=== PATIENT | female | born 1950 | race Hispanic/Latino ===

== ENCOUNTER → 2019-07-07 | Outpatient (CLI) | payer MEDICARE ==
[~2019-07-07] MED LIST: ALCA3DRO OU; AMLO5TAB5 PO; DICLOFENAC TP; DOCU100C33 PO; FURO40TA7 PO; GLIP5TAB11 PO; Isosorbide Mononitrate PO; LABE300T2 PO; LORA10TA7 PO; LOSA100T58 PO; OMEP-50 PO; PRAV40TA3 PO; SERT50TA PO; TRAM50TA4 PO; WARF1TAB46 PO
== END | disposition home or self-care (01) ==
LOC: SHCH 09:45
PROVIDERS: ATTEND Internal Medicine Cardiovascular Disease
DX: I11.9 Hypertensive heart disease without heart failure (principal); I07.1 Rheumatic tricuspid insufficiency
CPT/HCPCS: 93306

== ENCOUNTER 2023-07-26 08:57 | Inpatient (IN) | payer MEDICARE ==
[~2023-07-26] VITALS: Ht 149.9 cm; Wt 92.9 kg
[~2023-07-26 08:57] MED LIST changes: +ACET-2743 PO; -ALCA3DRO OU; +AMLO-258 PO; -AMLO5TAB5 PO; +ATOR40TA69 PO; -DICLOFENAC TP; -FURO40TA7 PO; +GLIM1TAB18 PO; -GLIP5TAB11 PO; +ISOS60TA77 PO; -Isosorbide Mononitrate PO; +LABE100T7 PO; -LABE300T2 PO; -LOSA100T58 PO; +LOSA100T59 PO; -OMEP-50 PO; +OMEP20CA12 PO; -PRAV40TA3 PO; +SITA100T12 PO; +TORS20TA4 PO; -TRAM50TA4 PO; -WARF1TAB46 PO; +WARF2.5T85 PO
[2023-07-26 11:02] LABS: HEMATOCRIT 32.9 % (36-48); MEAN CORPUSCULAR HEMOGLOBIN 27.9 pg (27.0-33.0); MEAN CORPUSCULAR HGB CONC 31.9 g/dL (32.0-36.0); MEAN CORPUSCULAR VOLUME 87.3 fL (79-99); PLATELET COUNT (AUTO) 195 K/uL (130-400); RED BLOOD CELL COUNT(AUTO) 3.77 MIL/uL (4.00-5.50)
[2023-07-26 11:10] LABS: CREATININE 0.7 mg/dL (0.5-1.5); POTASSIUM 3.7 mmol/L (3.5-5.1)
[2023-07-26 11:15] LABS: INR 1.56 (0.85-1.15); PROTHROMBIN TIME 17.6 SEC (9.6-11.6)
[2023-07-26 11:16] LABS: PARTIAL THROMBOPLASTIN TIME 43.9 SEC (26.3-35.5)
[2023-07-26 11:30] VITALS: BP 114/61; PULSE 66; RESP 18
[2023-07-26 11:40] LABS: BAND NEUTROPHILS % (MANUAL) 5 % (0-2); EOSINOPHILS % (MANUAL) 2 % (1-6); LYMPHOCYTES % (MANUAL) 19 % (22-44); MAN.DIFF COMMENT-IMPRESSION MANUAL DIFFERENTIAL; MONOCYTES % (MANUAL) 3 % (2-9); PLATELET MORPHOLOGY COMMENT ADEQUATE; SEGMENTED NEUTROPHILS % 71 % (40-70); TOTAL CELLS COUNTED 100; WBC MORPHOLOGY CONSISTENT W/DIFF
[2023-07-26 12:59] LABS: BASOPHILS # (AUTO) 0.04 K/uL (0.00-0.20); BASOPHILS % (AUTO) 0.6 % (0.0-5.0); EOSINOPHILS % (AUTO) 2.9 % (0.0-8.0); IMMATURE GRANULOCYTE ABSOLUTE 0.02 K/uL (0-1); LYMPHOCYTES # (AUTO) 1.2 K/uL (1.0-4.8); LYMPHOCYTES % (AUTO) 18.1 % (21.0-51.0); MONOCYTES # (AUTO) 0.6 K/uL (0.1-1.0); NEUTROPHILS # (AUTO) 4.7 K/uL (1.8-7.7); NEUTROPHILS % (AUTO) 69.1 % (40.0-77.0)
[2023-07-26] MEDS ORDERED: HEPARIN 5,000 UNIT VIAL SQ PRN (13:00)
[2023-07-26] MEDS: HEPARIN 25,000 UNITS/250ML D5W 250 ML IV SCH ×2 (13:15→19:48)
[2023-07-26] MEDS ORDERED: ACETAMINOPHEN 325 MG TAB PO PRN (16:00)
[2023-07-26] MEDS ORDERED: MAG/ALUM/SIMETH 30 ML UDCUP PO PRN (16:00)
[2023-07-26] MEDS ORDERED: ACETAMINOPHEN WITH CODEINE 1 TAB TAB PO PRN ×2 (16:00)
[2023-07-26] MEDS ORDERED: LACTATED RINGERS 1000ML 1,000 ML IV SCH (16:00)
[2023-07-26 16:15] VITALS: BP 125/56; PULSE 74; RESP 16
[2023-07-26] MEDS: NYSTATIN 15 GM POWDER TP SCH ×2 (16:56→21:05)
[2023-07-26] MEDS: POTASSIUM CHLORIDE 20MEQ/10ML 20 MEQ in LACTATED RINGERS 1000ML 1,000 ML IV SCH (17:43)
[2023-07-26 19:22] LABS: INR 1.67 (0.85-1.15); PROTHROMBIN TIME 18.7 SEC (9.6-11.6)
[2023-07-26 19:41] LABS: PARTIAL THROMBOPLASTIN TIME > 139.0 SEC (26.3-35.5)
[2023-07-26 20:27] VITALS: BP 142/61; PULSE 78; RESP 16
[2023-07-26 23:59] VITALS: BP 143/58; PULSE 73; RESP 16
[2023-07-27] MEDS ORDERED: TEMAZEPAM 7.5 MG CAPSULE PO ONE (01:51)
[2023-07-27] MEDS: TEMAZEPAM 7.5 MG CAPSULE PO PRN ×2 (01:56→20:52)
[2023-07-27] MEDS: HEPARIN 25,000 UNITS/250ML D5W 250 ML IV SCH ×4 (01:56→19:00)
[2023-07-27 03:53] VITALS: BP 167/69; PULSE 74; RESP 16
[2023-07-27 05:13] LABS: BASOPHILS # (AUTO) 0.03 K/uL (0.00-0.20); BASOPHILS % (AUTO) 0.6 % (0.0-5.0); EOSINOPHILS # (AUTO) 0.26 K/uL (0.00-0.70); HEMATOCRIT 33.3 % (36-48); IMMATURE GRANULOCYTE ABSOLUTE 0.01 K/uL (0-1); LYMPHOCYTES # (AUTO) 1.4 K/uL (1.0-4.8); LYMPHOCYTES % (AUTO) 26.6 % (21.0-51.0); MEAN CORPUSCULAR HEMOGLOBIN 27.4 pg (27.0-33.0); MEAN CORPUSCULAR HGB CONC 31.2 g/dL (32.0-36.0); MEAN CORPUSCULAR VOLUME 87.9 fL (79-99); MONOCYTES # (AUTO) 0.5 K/uL (0.1-1.0); MONOCYTES % (AUTO) 8.6 % (3.0-13.0); NEUTROPHILS # (AUTO) 3.1 K/uL (1.8-7.7); PLATELET COUNT (AUTO) 202 K/uL (130-400); RED BLOOD CELL COUNT(AUTO) 3.79 MIL/uL (4.00-5.50); RED CELL DISTRIBUTION WIDTH 15.9 % (11.0-15.5); WHITE BLOOD COUNT (AUTO) 5.2 K/uL (4.8-10.8)
[2023-07-27 05:36] LABS: INR 1.54 (0.85-1.15); PROTHROMBIN TIME 17.4 SEC (9.6-11.6)
[2023-07-27] MEDS ORDERED: FENTANYL CITRATE PF 50 MCG/1 ML 2ML VIAL ONE (07:17)
[2023-07-27] MEDS ORDERED: MIDAZOLAM HCL 1 MG/ML 2ML VIAL ONE (07:17)
[2023-07-27] MEDS ORDERED: PROPOFOL 10 MG/ML 20ML VIAL IV ONE (07:29)
[2023-07-27] MEDS ORDERED: ONDANSETRON 4MG INJ ONE (07:32)
[2023-07-27 08:00] VITALS: BP 148/63; PULSE 76; RESP 18; O2SAT 95
[2023-07-27] MEDS: NYSTATIN 15 GM POWDER TP SCH ×2 (09:52→21:02)
[2023-07-27 12:00] VITALS: BP 157/61; PULSE 73; RESP 18
[2023-07-27] MEDS ORDERED: ACETAMINOPHEN 500 MG TABLET PO PRN (13:00)
[2023-07-27] MEDS ORDERED: DOCUSATE SODIUM 100 MG CAP PO PRN (13:00)
[2023-07-27] MEDS: POTASSIUM CHLORIDE 20MEQ/10ML 20 MEQ in LACTATED RINGERS 1000ML 1,000 ML IV SCH (13:42)
[2023-07-27 16:00] VITALS: BP 141/53; PULSE 72; RESP 18
[2023-07-27] MEDS: LABETALOL HCL 100 MG TABLET PO SCH ×2 (19:00→20:52)
[2023-07-27 20:00] VITALS: BP 137/59; PULSE 74; RESP 17; O2SAT 97
[2023-07-27] MEDS: AMLODIPINE 5 MG TAB PO SCH (20:51)
[2023-07-27] MEDS ORDERED: LABETALOL HCL 100 MG TABLET PO SCH ×2 (21:00)
[2023-07-27] MEDS ORDERED: NON-FORMULARY MEDICATION 1 EACH (Amlodipine Besylate 10 MG) PO SCH (21:00)
[2023-07-28] VITALS (29 sets, daily range): BP systolic 130–160; BP diastolic 32–88; PULSE 61–87; RESP 12–18; O2SAT 96–98
[2023-07-28] MEDS: HEPARIN 25,000 UNITS/250ML D5W 250 ML IV SCH ×3 (00:07→13:00)
[2023-07-28] MEDS ORDERED: CEFAZOLIN SODIUM 2 GM VIAL ONE (05:58)
[2023-07-28] MEDS ORDERED: 0.9%NACL 100ML 48.45 ML, ROPIVACAINE 0.5% 5MG/ML 30ML 246.25 MG, KETOROLAC TROMETHAMINE... IV PRN ×5 (06:30)
[2023-07-28] MEDS ORDERED: SUCCINYLCHOLINE 200MG/10ML SYR ONE (06:35)
[2023-07-28] MEDS ORDERED: DEXAMETHASONE SOD PHOSPHATE 10MG/ML 1ML VIAL ONE (06:35)
[2023-07-28] MEDS ORDERED: ONDANSETRON 4MG INJ ONE ×2 (06:35→07:22)
[2023-07-28] MEDS ORDERED: LIDOCAINE PF 100MG/5ML (2%) SYRINGE 5ML ONE (06:35)
[2023-07-28] MEDS ORDERED: MIDAZOLAM HCL 1 MG/ML 2ML VIAL ONE (06:36)
[2023-07-28] MEDS ORDERED: ROCURONIUM 10MG/1ML SYR 10 MG/ML ML ONE (06:36)
[2023-07-28] MEDS ORDERED: GLYCOPYRROLATE 1 MG/5 ML SYRINGE ONE (06:36)
[2023-07-28] MEDS ORDERED: FENTANYL CITRATE PF 50 MCG/1 ML 2ML VIAL ONE ×2 (06:36→07:50)
[2023-07-28] MEDS ORDERED: PROPOFOL 10 MG/ML 20ML VIAL IV ONE (06:36)
[2023-07-28] MEDS ORDERED: NEOSTIGMINE 5MG/5ML SYR IV ONE (06:36)
[2023-07-28] MEDS ORDERED: EPINEPHRINE PF 1MG (1:1,000) 1 MG/ML AMP ONE (06:38)
[2023-07-28] MEDS ORDERED: CEFAZOLIN SODIUM 1 GM VIAL ONE (07:01)
[2023-07-28] MEDS ORDERED: GENTAMICIN SULFATE 80 MG/2 ML VIAL ONE (07:01)
[2023-07-28 07:14] LABS: CREATININE 0.6 mg/dL (0.5-1.5); POTASSIUM 4.5 mmol/L (3.5-5.1)
[2023-07-28 07:16] LABS: INR 1.17 (0.85-1.15); PROTHROMBIN TIME 13.4 SEC (9.6-11.6)
[2023-07-28 07:18] LABS: PARTIAL THROMBOPLASTIN TIME 34.1 SEC (26.3-35.5)
[2023-07-28] MEDS: NYSTATIN 15 GM POWDER TP SCH ×2 (09:00→19:55)
[2023-07-28] MEDS: GLIMEPIRIDE 1 MG PO SCH (09:00)
[2023-07-28] MEDS: LABETALOL HCL 100 MG TABLET PO SCH ×2 (09:00→19:54)
[2023-07-28] MEDS: ISOSORBIDE MONO 60MG SR TAB PO SCH (09:00)
[2023-07-28] MEDS: TORSEMIDE 20 MG TAB PO SCH (09:00)
[2023-07-28] MEDS: ATORVASTATIN 40 MG TABLET PO SCH (09:00)
[2023-07-28] MEDS ORDERED: MEPERIDINE-PF 25 MG/ML SYG ONE (09:48)
[2023-07-28] MEDS: POTASSIUM CHLORIDE 20MEQ/10ML 20 MEQ in LACTATED RINGERS 1000ML 1,000 ML IV SCH (09:54)
[2023-07-28] MEDS ORDERED: ACETAMINOPHEN 325 MG TAB PO PRN (11:00)
[2023-07-28] MEDS ORDERED: BENZOCAINE/MENTH/CETYLPYRD CL 1 EACH LOZENGE MM PRN (11:00)
[2023-07-28] MEDS ORDERED: DIPHENOXYLATE HCL/ATROPINE 2.5/0.025 MG TAB PO PRN (11:00)
[2023-07-28] MEDS ORDERED: ONDANSETRON 4MG INJ IVP PRN (11:00)
[2023-07-28] MEDS ORDERED: ACETAMINOPHEN 325 MG TAB PO SCH (11:00)
[2023-07-28] MEDS ORDERED: TRAMADOL HCL 50 MG TABLET PO PRN (11:00)
[2023-07-28] MEDS ORDERED: DIPHENHYDRAMINE HCL 25 MG CAPSULE PO PRN (11:00)
[2023-07-28] MEDS ORDERED: DiphenhydrAMINE HCL 50 MG/ML VIAL IM PRN (11:00)
[2023-07-28] MEDS ORDERED: HYDROMORPHONE PCA 10 MG/50 ML 50 ML IV PRN (11:00)
[2023-07-28] MEDS ORDERED: MAG/ALUM/SIMETH 30 ML UDCUP PO PRN (11:00)
[2023-07-28] MEDS ORDERED: DIPHENHYDRAMINE HCL 25 MG CAPSULE PO SCH (11:00)
[2023-07-28] MEDS: INSULIN HUMULIN R 100 UNIT/ML 3ML SQ SCH ×3 (11:30→19:55)
[2023-07-28] MEDS ORDERED: CLINDAMYCIN IVPB 900MG/50ML IV SCH (12:30)
[2023-07-28] MEDS: 0.9%NACL 1000ML 1,000 ML IV SCH (12:30)
[2023-07-28 12:55] LABS: HEMATOCRIT 35.9 % (36-48)
[2023-07-28] MEDS: CEFAZOLIN SODIUM 2 GM VIAL IVPB SCH (16:30)
[2023-07-28] MEDS ORDERED: WARFARIN SODIUM 1 MG TAB PO SCH (17:00)
[2023-07-28] MEDS: AMLODIPINE 5 MG TAB PO SCH (19:54)
[2023-07-28] MEDS: TEMAZEPAM 7.5 MG CAPSULE PO PRN (20:08)
[2023-07-28 20:15] LABS: INR 1.11 (0.85-1.15); PROTHROMBIN TIME 12.8 SEC (9.6-11.6)
[2023-07-28 20:16] LABS: PARTIAL THROMBOPLASTIN TIME 68.3 SEC (26.3-35.5)
[2023-07-29] MEDS ORDERED: CEFAZOLIN SODIUM 2 GM VIAL ONE (00:37)
[2023-07-29] MEDS: CEFAZOLIN SODIUM 2 GM VIAL IVPB SCH (00:38)
[2023-07-29] MEDS: 0.9%NACL 1000ML 1,000 ML IV SCH ×3 (00:41→18:16)
[2023-07-29] MEDS: HEPARIN 25,000 UNITS/250ML D5W 250 ML IV SCH ×5 (01:00→20:13)
[2023-07-29 03:36] VITALS: BP 140/65; PULSE 78; RESP 18
[2023-07-29 03:38] LABS: BASOPHILS # (AUTO) 0.02 K/uL (0.00-0.20); BASOPHILS % (AUTO) 0.2 % (0.0-5.0); EOSINOPHILS # (AUTO) 0.02 K/uL (0.00-0.70); EOSINOPHILS % (AUTO) 0.2 % (0.0-8.0); HEMATOCRIT 29.2 % (36-48); IMMATURE GRANULOCYTE ABSOLUTE 0.04 K/uL (0-1); LYMPHOCYTES # (AUTO) 0.9 K/uL (1.0-4.8); LYMPHOCYTES % (AUTO) 8.6 % (21.0-51.0); MEAN CORPUSCULAR HEMOGLOBIN 27.7 pg (27.0-33.0); MEAN CORPUSCULAR HGB CONC 31.2 g/dL (32.0-36.0); MEAN CORPUSCULAR VOLUME 88.8 fL (79-99); MONOCYTES # (AUTO) 0.9 K/uL (0.1-1.0); NEUTROPHILS % (AUTO) 81.6 % (40.0-77.0); PLATELET COUNT (AUTO) 207 K/uL (130-400); RED BLOOD CELL COUNT(AUTO) 3.29 MIL/uL (4.00-5.50); RED CELL DISTRIBUTION WIDTH 15.9 % (11.0-15.5); WHITE BLOOD COUNT (AUTO) 9.9 K/uL (4.8-10.8)
[2023-07-29 03:48] LABS: INR 1.13 (0.85-1.15)
[2023-07-29 03:52] LABS: ALBUMIN 2.7 g/dL (3.5-5.0); BILIRUBIN,TOTAL 0.2 mg/dL (0.2-1.0); CREATININE 0.7 mg/dL (0.5-1.5); MAGNESIUM 1.7 mg/dL (1.80-2.40); POTASSIUM 4.2 mmol/L (3.5-5.1); TOTAL PROTEIN, SERUM 6.1 g/dL (6.0-8.3)
[2023-07-29] MEDS: MAGNESIUM 2GM PREMIX 50ML 50 ML IV PRN (04:21)
[2023-07-29 04:25] LABS: PARTIAL THROMBOPLASTIN TIME 101.2 SEC (26.3-35.5)
[2023-07-29] MEDS: TRAMADOL HCL 50 MG TABLET PO PRN ×4 (04:36→23:48)
[2023-07-29] MEDS: INSULIN HUMULIN R 100 UNIT/ML 3ML SQ SCH ×4 (05:23→21:34)
[2023-07-29 08:00] VITALS: BP 119/57; PULSE 86; RESP 18; O2SAT 95
[2023-07-29] MEDS: GLIMEPIRIDE 1 MG PO SCH (09:00)
[2023-07-29] MEDS ORDERED: WARFARIN SODIUM 2 MG TAB PO SCH (09:00)
[2023-07-29] MEDS: ISOSORBIDE MONO 60MG SR TAB PO SCH (09:13)
[2023-07-29] MEDS: ATORVASTATIN 40 MG TABLET PO SCH (09:14)
[2023-07-29] MEDS: LABETALOL HCL 100 MG TABLET PO SCH ×2 (09:14→21:31)
[2023-07-29] MEDS: TORSEMIDE 20 MG TAB PO SCH (09:15)
[2023-07-29] MEDS: NYSTATIN 15 GM POWDER TP SCH ×2 (11:12→22:01)
[2023-07-29 12:00] VITALS: BP 138/65; PULSE 80; RESP 18
[2023-07-29 12:17] LABS: INR 1.15 (0.85-1.15); PROTHROMBIN TIME 13.2 SEC (9.6-11.6)
[2023-07-29 16:00] VITALS: BP 152/58; PULSE 80; RESP 18
[2023-07-29] MEDS ORDERED: WARFARIN SODIUM 2.5 MG TAB PO SCH (17:00)
[2023-07-29 18:26] LABS: INR 1.27 (0.85-1.15); PROTHROMBIN TIME 14.5 SEC (9.6-11.6)
[2023-07-29 18:27] LABS: PARTIAL THROMBOPLASTIN TIME 74.3 SEC (26.3-35.5)
[2023-07-29 20:00] VITALS: BP 142/56; PULSE 87; RESP 18; O2SAT 96
[2023-07-29] MEDS: AMLODIPINE 5 MG TAB PO SCH (21:31)
[2023-07-29] MEDS ORDERED: DILTIAZEM 60MG TAB ONE (23:26)
[2023-07-30] VITALS (7 sets, daily range): BP systolic 128–163; BP diastolic 58–75; PULSE 73–91; RESP 17–18; O2SAT 95–96
[2023-07-30 00:50] LABS: BASOPHILS # (AUTO) 0.04 K/uL (0.00-0.20); BASOPHILS % (AUTO) 0.5 % (0.0-5.0); EOSINOPHILS # (AUTO) 0.29 K/uL (0.00-0.70); EOSINOPHILS % (AUTO) 3.5 % (0.0-8.0); IMMATURE GRANULOCYTE ABSOLUTE 0.02 K/uL (0-1); LYMPHOCYTES # (AUTO) 1.3 K/uL (1.0-4.8); MEAN CORPUSCULAR HEMOGLOBIN 28.8 pg (27.0-33.0); MEAN CORPUSCULAR HGB CONC 32.2 g/dL (32.0-36.0); MEAN CORPUSCULAR VOLUME 89.4 fL (79-99); MONOCYTES # (AUTO) 0.9 K/uL (0.1-1.0); MONOCYTES % (AUTO) 11.2 % (3.0-13.0); NEUTROPHILS # (AUTO) 5.9 K/uL (1.8-7.7); NEUTROPHILS % (AUTO) 69.6 % (40.0-77.0); PLATELET COUNT (AUTO) 186 K/uL (130-400); RED BLOOD CELL COUNT(AUTO) 3.02 MIL/uL (4.00-5.50); RED CELL DISTRIBUTION WIDTH 16.2 % (11.0-15.5); WHITE BLOOD COUNT (AUTO) 8.4 K/uL (4.8-10.8)
[2023-07-30 01:08] LABS: CREATININE 0.8 mg/dL (0.5-1.5); MAGNESIUM 1.6 mg/dL (1.80-2.40); POTASSIUM 4.3 mmol/L (3.5-5.1)
[2023-07-30] MEDS: MAGNESIUM 2GM PREMIX 50ML 50 ML IV PRN (01:15)
[2023-07-30 01:29] LABS: INR 1.3 (0.85-1.15); PROTHROMBIN TIME 14.8 SEC (9.6-11.6)
[2023-07-30 01:31] LABS: PARTIAL THROMBOPLASTIN TIME 68.3 SEC (26.3-35.5)
[2023-07-30] MEDS: HEPARIN 25,000 UNITS/250ML D5W 250 ML IV SCH ×5 (01:41→23:29)
[2023-07-30] MEDS: ACETAMINOPHEN 325 MG TAB PO PRN (01:48)
[2023-07-30] MEDS: TEMAZEPAM 7.5 MG CAPSULE PO PRN (01:48)
[2023-07-30] MEDS: INSULIN HUMULIN R 100 UNIT/ML 3ML SQ SCH ×4 (06:26→21:00)
[2023-07-30] MEDS: 0.9%NACL 1000ML 1,000 ML IV SCH ×2 (07:00→13:36)
[2023-07-30] MEDS: GLIMEPIRIDE 1 MG PO SCH (09:00)
[2023-07-30] MEDS: LACTULOSE 20 GM/30 ML UDCUP PO PRN ×2 (09:05→18:20)
[2023-07-30] MEDS: ISOSORBIDE MONO 60MG SR TAB PO SCH (09:05)
[2023-07-30] MEDS: FUROSEMIDE 20MG VIAL IV SCH (09:05)
[2023-07-30] MEDS: TORSEMIDE 20 MG TAB PO SCH (09:05)
[2023-07-30] MEDS: ATORVASTATIN 40 MG TABLET PO SCH (09:06)
[2023-07-30] MEDS: LABETALOL HCL 100 MG TABLET PO SCH ×2 (09:06→21:42)
[2023-07-30] MEDS: NYSTATIN 15 GM POWDER TP SCH ×2 (09:11→21:43)
[2023-07-30] MEDS: TRAMADOL HCL 50 MG TABLET PO PRN ×2 (13:37→13:41)
[2023-07-30] MEDS ORDERED: WARFARIN SODIUM 5 MG TAB PO SCH (17:00)
[2023-07-30] MEDS: AMLODIPINE 5 MG TAB PO SCH (21:42)
[2023-07-31] VITALS (10 sets, daily range): BP systolic 126–153; BP diastolic 60–75; PULSE 83–90; RESP 16–18; TEMP 98.8; O2SAT 95–96
[2023-07-31 04:10] LABS: HEMATOCRIT 24.9 % (36-48); MEAN CORPUSCULAR HEMOGLOBIN 28.4 pg (27.0-33.0); MEAN CORPUSCULAR HGB CONC 32.5 g/dL (32.0-36.0); MEAN CORPUSCULAR VOLUME 87.4 fL (79-99); RED BLOOD CELL COUNT(AUTO) 2.85 MIL/uL (4.00-5.50); RED CELL DISTRIBUTION WIDTH 16.3 % (11.0-15.5); WHITE BLOOD COUNT (AUTO) 8.4 K/uL (4.8-10.8)
[2023-07-31 04:23] LABS: CREATININE 0.6 mg/dL (0.5-1.5); POTASSIUM 4.1 mmol/L (3.5-5.1)
[2023-07-31 04:27] LABS: INR 1.59 (0.85-1.15); PROTHROMBIN TIME 17.9 SEC (9.6-11.6)
[2023-07-31] MEDS: INSULIN HUMULIN R 100 UNIT/ML 3ML SQ SCH ×4 (06:11→21:00)
[2023-07-31] MEDS: HEPARIN 25,000 UNITS/250ML D5W 250 ML IV SCH ×3 (06:45→13:00)
[2023-07-31] MEDS: 0.9%NACL 1000ML 1,000 ML IV SCH ×3 (07:00→20:30)
[2023-07-31] MEDS: FUROSEMIDE 20MG VIAL IV SCH (07:30)
[2023-07-31] MEDS: ISOSORBIDE MONO 60MG SR TAB PO SCH (09:28)
[2023-07-31] MEDS: TORSEMIDE 20 MG TAB PO SCH (09:28)
[2023-07-31] MEDS: LABETALOL HCL 100 MG TABLET PO SCH ×2 (09:28→21:27)
[2023-07-31] MEDS: ATORVASTATIN 40 MG TABLET PO SCH (09:28)
[2023-07-31] MEDS: TRAMADOL HCL 50 MG TABLET PO PRN ×2 (09:29→14:28)
[2023-07-31] MEDS: ACETAMINOPHEN 325 MG TAB PO PRN (12:16)
[2023-07-31] MEDS: NYSTATIN 15 GM POWDER TP SCH ×2 (12:22→21:31)
[2023-07-31] MEDS: WARFARIN SODIUM 2.5 MG TAB PO SCH (16:43)
[2023-07-31] MEDS: AMLODIPINE 5 MG TAB PO SCH (21:27)
[2023-08-01] VITALS (7 sets, daily range): BP systolic 127–169; BP diastolic 50–85; PULSE 72–92; RESP 17–19; O2SAT 93–95
[2023-08-01] MEDS: TRAMADOL HCL 50 MG TABLET PO PRN ×4 (00:54→20:45)
[2023-08-01] MEDS: HEPARIN 25,000 UNITS/250ML D5W 250 ML IV SCH ×4 (01:00→19:00)
[2023-08-01 05:13] LABS: HEMATOCRIT 25.4 % (36-48); MEAN CORPUSCULAR HEMOGLOBIN 27.9 pg (27.0-33.0); MEAN CORPUSCULAR HGB CONC 31.5 g/dL (32.0-36.0); MEAN CORPUSCULAR VOLUME 88.5 fL (79-99); RED BLOOD CELL COUNT(AUTO) 2.87 MIL/uL (4.00-5.50); RED CELL DISTRIBUTION WIDTH 16.5 % (11.0-15.5); WHITE BLOOD COUNT (AUTO) 8.4 K/uL (4.8-10.8)
[2023-08-01 05:24] LABS: CREATININE 0.6 mg/dL (0.5-1.5); POTASSIUM 4.3 mmol/L (3.5-5.1)
[2023-08-01 05:29] LABS: INR 1.75 (0.85-1.15); PROTHROMBIN TIME 19.6 SEC (9.6-11.6)
[2023-08-01 05:31] LABS: PARTIAL THROMBOPLASTIN TIME 63.5 SEC (26.3-35.5)
[2023-08-01] MEDS: 0.9%NACL 1000ML 1,000 ML IV SCH ×2 (06:30→16:30)
[2023-08-01] MEDS: FUROSEMIDE 20MG VIAL IV SCH (07:30)
[2023-08-01] MEDS: INSULIN HUMULIN R 100 UNIT/ML 3ML SQ SCH ×4 (07:30→21:00)
[2023-08-01] MEDS: TORSEMIDE 20 MG TAB PO SCH (09:46)
[2023-08-01] MEDS: ATORVASTATIN 40 MG TABLET PO SCH (09:52)
[2023-08-01] MEDS: ISOSORBIDE MONO 60MG SR TAB PO SCH (09:52)
[2023-08-01] MEDS: LABETALOL HCL 100 MG TABLET PO SCH ×2 (09:53→20:22)
[2023-08-01] MEDS: NYSTATIN 15 GM POWDER TP SCH ×2 (09:55→20:22)
[2023-08-01] MEDS: GLIMEPIRIDE 1 MG PO SCH ×2 (10:00→10:01)
[2023-08-01] MEDS: WARFARIN SODIUM 2.5 MG TAB PO SCH (15:32)
[2023-08-01] MEDS: AMLODIPINE 5 MG TAB PO SCH (20:22)
[2023-08-02] VITALS (8 sets, daily range): BP systolic 130–161; BP diastolic 62–68; PULSE 78–88; RESP 16–20; O2SAT 96–97
[2023-08-02] MEDS: 0.9%NACL 1000ML 1,000 ML IV SCH ×3 (02:30→22:30)
[2023-08-02 04:19] LABS: BASOPHILS # (AUTO) 0.03 K/uL (0.00-0.20); BASOPHILS % (AUTO) 0.3 % (0.0-5.0); EOSINOPHILS # (AUTO) 0.37 K/uL (0.00-0.70); EOSINOPHILS % (AUTO) 3.7 % (0.0-8.0); HEMATOCRIT 26.3 % (36-48); IMMATURE GRANULOCYTE ABSOLUTE 0.04 K/uL (0-1); LYMPHOCYTES # (AUTO) 1.6 K/uL (1.0-4.8); LYMPHOCYTES % (AUTO) 15.5 % (21.0-51.0); MEAN CORPUSCULAR HEMOGLOBIN 27.6 pg (27.0-33.0); MEAN CORPUSCULAR HGB CONC 31.6 g/dL (32.0-36.0); MEAN CORPUSCULAR VOLUME 87.4 fL (79-99); MONOCYTES # (AUTO) 1.1 K/uL (0.1-1.0); MONOCYTES % (AUTO) 10.6 % (3.0-13.0); NEUTROPHILS # (AUTO) 6.9 K/uL (1.8-7.7); NEUTROPHILS % (AUTO) 69.5 % (40.0-77.0); PLATELET COUNT (AUTO) 210 K/uL (130-400); RED BLOOD CELL COUNT(AUTO) 3.01 MIL/uL (4.00-5.50); RED CELL DISTRIBUTION WIDTH 16.6 % (11.0-15.5)
[2023-08-02 04:35] LABS: INR 1.79 (0.85-1.15)
[2023-08-02 04:36] LABS: PARTIAL THROMBOPLASTIN TIME 70.2 SEC (26.3-35.5)
[2023-08-02] MEDS: INSULIN HUMULIN R 100 UNIT/ML 3ML SQ SCH ×4 (05:34→21:00)
[2023-08-02] MEDS: HEPARIN 25,000 UNITS/250ML D5W 250 ML IV SCH ×3 (07:00→16:25)
[2023-08-02] MEDS: LABETALOL HCL 100 MG TABLET PO SCH ×2 (09:14→21:09)
[2023-08-02] MEDS: ISOSORBIDE MONO 60MG SR TAB PO SCH (09:14)
[2023-08-02] MEDS: ATORVASTATIN 40 MG TABLET PO SCH (09:14)
[2023-08-02] MEDS: TORSEMIDE 20 MG TAB PO SCH (09:15)
[2023-08-02] MEDS: TRAMADOL HCL 50 MG TABLET PO PRN ×2 (09:15→13:21)
[2023-08-02] MEDS: FUROSEMIDE 20MG VIAL IV SCH (09:16)
[2023-08-02] MEDS: NYSTATIN 15 GM POWDER TP SCH ×2 (09:18→21:00)
[2023-08-02] MEDS: GLIMEPIRIDE 1 MG PO SCH (09:18)
[2023-08-02] MEDS: WARFARIN SODIUM 1 MG TAB PO SCH ×2 (11:00→16:11)
[2023-08-02] MEDS ORDERED: WARFARIN SODIUM 1 MG TAB PO SCH (11:32)
[2023-08-02 12:13] LABS: HEMATOCRIT 28.7 % (36-48)
[2023-08-02] MEDS: LACTULOSE 20 GM/30 ML UDCUP PO PRN (17:17)
[2023-08-02] MEDS: AMLODIPINE 5 MG TAB PO SCH (21:09)
[2023-08-02] MEDS: TEMAZEPAM 7.5 MG CAPSULE PO PRN (22:59)
[2023-08-03] VITALS (7 sets, daily range): BP systolic 131–152; BP diastolic 50–80; PULSE 83–96; RESP 18–22; O2SAT 98
[2023-08-03 03:16] LABS: HEMATOCRIT 27.4 % (36-48); MEAN CORPUSCULAR HGB CONC 32.5 g/dL (32.0-36.0); MEAN CORPUSCULAR VOLUME 86.2 fL (79-99); RED BLOOD CELL COUNT(AUTO) 3.18 MIL/uL (4.00-5.50); RED CELL DISTRIBUTION WIDTH 16.7 % (11.0-15.5); WHITE BLOOD COUNT (AUTO) 10.7 K/uL (4.8-10.8)
[2023-08-03 03:22] LABS: CREATININE 0.9 mg/dL (0.5-1.5); POTASSIUM 4.3 mmol/L (3.5-5.1)
[2023-08-03] MEDS: ACETAMINOPHEN 325 MG TAB PO PRN ×4 (03:28→19:52)
[2023-08-03 03:29] LABS: INR 2.33 (0.85-1.15); PROTHROMBIN TIME 25.6 SEC (9.6-11.6)
[2023-08-03 03:30] LABS: PARTIAL THROMBOPLASTIN TIME 55.4 SEC (26.3-35.5)
[2023-08-03] MEDS: INSULIN HUMULIN R 100 UNIT/ML 3ML SQ SCH ×4 (05:43→21:00)
[2023-08-03] MEDS: HEPARIN 25,000 UNITS/250ML D5W 250 ML IV SCH (07:00)
[2023-08-03] MEDS: GLIMEPIRIDE 1 MG PO SCH (09:00)
[2023-08-03] MEDS: TORSEMIDE 20 MG TAB PO SCH (09:12)
[2023-08-03] MEDS: LABETALOL HCL 100 MG TABLET PO SCH ×2 (09:13→19:51)
[2023-08-03] MEDS: ATORVASTATIN 40 MG TABLET PO SCH (09:13)
[2023-08-03] MEDS: 0.9%NACL 1000ML 1,000 ML IV SCH ×2 (09:13→18:30)
[2023-08-03] MEDS: ISOSORBIDE MONO 60MG SR TAB PO SCH (09:13)
[2023-08-03] MEDS: NYSTATIN 15 GM POWDER TP SCH ×2 (09:26→21:35)
[2023-08-03] MEDS ORDERED: WARFARIN SODIUM 2.5 MG TAB PO SCH (16:00)
[2023-08-03] MEDS: AMLODIPINE 5 MG TAB PO SCH (19:51)
[2023-08-03] MEDS: TEMAZEPAM 7.5 MG CAPSULE PO PRN (23:47)
[2023-08-04] VITALS: BP 142/73; PULSE 91; RESP 18
[2023-08-04 01:06] VITALS: BP 116/85; PULSE 93; RESP 16
[2023-08-04] MEDS: 0.9%NACL 1000ML 1,000 ML IV SCH (03:46)
[2023-08-04 04:00] VITALS: BP 141/63; PULSE 87; RESP 18
[2023-08-04 05:15] LABS: INR 3.86 (0.85-1.15)
[2023-08-04] MEDS: INSULIN HUMULIN R 100 UNIT/ML 3ML SQ SCH ×2 (06:40→11:20)
[2023-08-04 08:00] VITALS: BP 155/84; PULSE 98; RESP 18
[2023-08-04] MEDS: ATORVASTATIN 40 MG TABLET PO SCH (08:51)
[2023-08-04] MEDS: LABETALOL HCL 100 MG TABLET PO SCH (08:51)
[2023-08-04] MEDS: ISOSORBIDE MONO 60MG SR TAB PO SCH (08:52)
[2023-08-04] MEDS: TORSEMIDE 20 MG TAB PO SCH (08:52)
[2023-08-04] MEDS: GLIMEPIRIDE 1 MG PO SCH (08:57)
[2023-08-04] MEDS: NYSTATIN 15 GM POWDER TP SCH (08:58)
[2023-08-04 09:00] VITALS: O2SAT 99
[2023-08-04] MEDS: ACETAMINOPHEN 325 MG TAB PO PRN (09:46)
[2023-08-04 12:00] VITALS: BP 133/57; PULSE 85; RESP 18
== END 2023-08-04 12:15 | disposition home health service (06) | DRG 470 ==
LOC: EDH 08:57 → DIRECT 09:59 → 4DH 10:55
PROVIDERS: ADMIT Orthopaedic Surgery; ATTEND Orthopaedic Surgery
PROC: 0SRD0J9 Replacement of Left Knee Joint with Synthetic Substitute, Cemented, Open Approach (ICD-10-PCS; principal; 2023-07-28)
DX: M17.12 Unilateral primary osteoarthritis, left knee (principal); Z16.24 Resistance to multiple antibiotics; I10 Essential (primary) hypertension; E11.9 Type 2 diabetes mellitus without complications; I25.10 Atherosclerotic heart disease of native coronary artery without angina pectoris; D64.9 Anemia, unspecified; I1A.0 Resistant hypertension; Z96.611 Presence of right artificial shoulder joint; Z96.612 Presence of left artificial shoulder joint; E78.00 Pure hypercholesterolemia, unspecified; M81.8 Other osteoporosis without current pathological fracture; K21.9 Gastro-esophageal reflux disease without esophagitis; Z79.01 Long term (current) use of anticoagulants; Z79.899 Other long term (current) drug therapy; Z90.49 Acquired absence of other specified parts of digestive tract; Z90.710 Acquired absence of both cervix and uterus; Z95.2 Presence of prosthetic heart valve
CPT/HCPCS: 36415; 71045; 80048; 80053; 82948; 83735; 84484; 85014; 85018; 85025; 85027; 85610; 85730; 86850; 86900; 86901; 87641; 93005; 97039; G0378; J0171; J0330; J0690; J0735; J1100; J1170; J1580; J1644; J1815; J1885; J1940; J2001; J2175; J2250; J2405; J2704; J2710; J2795; J3010; J3475; J3480; J3490; J7030; J7120; A4215; A4221; A4222; A4223; A4510; A4615; A4649; A4663; A6223; A6260; A6450; C1763; C1776

== ENCOUNTER → 2024-04-19 | Outpatient (CLI) | payer MEDICARE ==
[~2024-04-19] MED LIST changes: -GLIM1TAB18 PO; +GLIM1TAB56 PO; -LORA10TA7 PO; -LOSA100T59 PO; -OMEP20CA12 PO; -SERT50TA PO
== END | disposition home or self-care (01) ==
LOC: SHCH 09:47
PROVIDERS: ATTEND Internal Medicine Cardiovascular Disease
DX: I08.8 Other rheumatic multiple valve diseases (principal); R06.09 Other forms of dyspnea
CPT/HCPCS: 93306

== ENCOUNTER → 2024-09-06 | Outpatient (CLI) | payer MEDICARE ==
[2024-09-06 16:40] LABS: BASOPHILS # (AUTO) 0.04 K/uL (0.00-0.20); BASOPHILS % (AUTO) 0.6 % (0.0-5.0); EOSINOPHILS % (AUTO) 4.3 % (0.0-8.0); HEMATOCRIT 36.8 % (36-48); IMMATURE GRANULOCYTE ABSOLUTE 0.01 K/uL (0-1); LYMPHOCYTES # (AUTO) 1.4 K/uL (1.0-4.8); LYMPHOCYTES % (AUTO) 19.7 % (21.0-51.0); MEAN CORPUSCULAR HEMOGLOBIN 28.7 pg (27.0-33.0); MEAN CORPUSCULAR VOLUME 92.7 fL (79-99); MONOCYTES # (AUTO) 0.7 K/uL (0.1-1.0); MONOCYTES % (AUTO) 9.4 % (3.0-13.0); NEUTROPHILS # (AUTO) 4.6 K/uL (1.8-7.7); NEUTROPHILS % (AUTO) 65.9 % (40.0-77.0); PLATELET COUNT (AUTO) 187 K/uL (130-400); RED BLOOD CELL COUNT(AUTO) 3.97 MIL/uL (4.00-5.50); RED CELL DISTRIBUTION WIDTH 15.8 % (11.0-15.5); WHITE BLOOD COUNT (AUTO) 6.9 K/uL (4.8-10.8)
== END | disposition home or self-care (01) ==
LOC: LAB 15:54
PROVIDERS: ATTEND Internal Medicine Cardiovascular Disease
DX: I11.0 Hypertensive heart disease with heart failure (principal); I50.42 Chronic combined systolic (congestive) and diastolic (congestive) heart failure; D50.8 Other iron deficiency anemias; Z79.01 Long term (current) use of anticoagulants; Z95.2 Presence of prosthetic heart valve
CPT/HCPCS: 36415; 85025

== ENCOUNTER → 2024-11-23 | Outpatient (CLI) | payer MEDICARE ==
[2024-11-23 12:17] LABS: INR 2.53 (0.85-1.15); PROTHROMBIN TIME 25.8 SEC (9.6-11.6)
== END | disposition home or self-care (01) ==
LOC: LAB 11:09
PROVIDERS: ATTEND Internal Medicine Cardiovascular Disease
DX: I11.0 Hypertensive heart disease with heart failure (principal); I50.42 Chronic combined systolic (congestive) and diastolic (congestive) heart failure; I25.10 Atherosclerotic heart disease of native coronary artery without angina pectoris; Z79.899 Other long term (current) drug therapy; D50.8 Other iron deficiency anemias; Z79.01 Long term (current) use of anticoagulants; Z95.2 Presence of prosthetic heart valve
CPT/HCPCS: 36415; 85610